=== PATIENT | female | born 1980 | race Caucasian/White ===

== ENCOUNTER 2017-10-01 01:46 | Emergency (ER) | payer OTHER ==
[~2017-10-01] VITALS: Ht 172.7 cm; Wt 181.4 kg
[~2017-10-01 01:46] MED LIST: AZIT250T6 PO; GUAI120L35 PO; HYDR-2758 PO; ONDA4TAB10 SL
[2017-10-01] MEDS ORDERED: IV NORMAL SALINE 1,000ML 1,920 ML IV SCH (02:10)
[2017-10-01] MEDS ORDERED: ONDANSETRON PF 4 MG/2 ML VIAL. IV ONE (02:15)
--- NOTE | 2017-10-01 02:21 | PHYS DOC ---
Past History Past Medical History: Hypertension Past Surgical History: Oophorectomy, Tubal ligation Alcohol Use: Occasionally Drug Use: None Adult General Chief Complaint Chief Complaint: FEVER HPI HPI Patient is a 37 year old female who presents with complaint of fever, chills, and redness to the left lower extremity. Patient states that she started feeling sick earlier yesterday. Patient states that she felt very weak and feverish after getting home from work. Patient noticed later in the evening that she had a red area on her left lower extremity. Patient denies any history of similar symptoms. Patient states that the redness has increased over the last several hours and has started to go up her leg towards her knee. The patient states that the leg is very tender and is having pain when she bears weight on the affected extremity. Patient follows with Dr. Pederson for primary care. Patient states that she has history of psoriasis but denies any other health problems. Patient is not currently on any medications. Patient has not taken any medications for her current symptoms. Patient rates her pain currently as 8 out of 10. Review of Systems Review of Systems Constitutional: Fever, chills[] Eyes: Denies change in visual acuity, redness, or eye pain [] HENT: Denies nasal congestion or sore throat [] Respiratory: Denies cough or shortness of breath [] Cardiovascular: Denies chest pain or edema[] GI: Denies abdominal pain, nausea, vomiting, bloody stools or diarrhea [] : Denies dysuria or hematuria [] Musculoskeletal: Denies back pain or joint pain [] Integument: Redness to left lower leg[] Neurologic: Denies headache, focal weakness or sensory changes [] All other systems were reviewed and found to be within normal limits, except as documented in this note. Current Medications Current Medications Current Medications Medications (Trade) Dose Ordered Sig/Magdi Start Time Stop Time Status Last Admin Dose Admin Fentanyl Citrate (Fentanyl 2ml Vial) 50 mcg PRN Q15MIN PRN 10/01/17 02:15 10/02/17 02:14 UNV Ondansetron HCl (Zofran) 4 mg 1X ONCE 10/01/17 02:15 10/01/17 02:16 UNV Sodium Chloride 1,920 ml @ 1,920 mls/hr Q1H 10/01/17 02:10 UNV Allergies Allergies Allergies Coded Allergies Type Severity Reaction Last Updated Verified cefoxitin Allergy Intermediate 09/04/16 Yes morphine Allergy Intermediate Hives 09/04/16 Yes Physical Exam Physical Exam Constitutional: Alert, afebrile, obese, appears in moderate discomfort. [] HENT: Normocephalic, atraumatic, bilateral external ears normal, oropharynx moist, no oral exudates, nose normal. [] Eyes: PERRLA, EOMI, conjunctiva normal, no discharge. [] Neck: Normal range of motion, no tenderness, supple, no stridor. [] Cardiovascular: Tachycardia, regular rhythm, no murmur [] Lungs & Thorax: Bilateral breath sounds clear to auscultation [] Abdomen: Bowel sounds normal, soft, no tenderness, no masses, no pulsatile masses. [] Skin: Warm, dry, erythema, induration, and warmth of left lower extremity with erythema extending proximally to the upper third of the left lower leg. [] Back: No tenderness, no CVA tenderness. [] Extremities: Tenderness palpation in the aforementioned area of erythema of the left lower leg, no cyanosis, no clubbing, ROM intact. [] Neurologic: Alert and oriented X 3, normal motor function, normal sensory function, no focal deficits noted. [] Current Patient Data Vital Signs Vital Signs Date Time Temp Pulse Resp B/P (MAP) Pulse Ox O2 Delivery O2 Flow Rate FiO2 10/01/17 01:46 99.5 107 22 97 Room Air EKG EKG Rhythm strip interpretation by me: Heart rate 105, sinus tachycardia, no ectopy[ ] Radiology/Procedures Radiology/Procedures Not performed[] Course & Med Decision Making Course & Med Decision Making Pertinent Labs and Imaging studies reviewed. (See chart for details) Patient was treated with IV fluids, fentanyl, and Zofran. Patient has a mildly elevated white count, however lactic acid levels are within normal limits and patient's tachycardia has resolved with fluid administration. Patient started on IV doxycycline in the emergency department. The patient will continue on 10 day course of oral doxycycline for treatment of cellulitis of the left lower extremity. Advised follow-up with Dr. Pederson in 2-3 days for reevaluation and return to emergency department for any worsening symptoms. Patient voiced understanding and in agreement with treatment plan. Dragon Disclaimer Dragon Disclaimer This electronic medical record was generated, in whole or in part, using a voice recognition dictation system. Departure Departure: Impression: Primary Impression: Cellulitis Disposition: HOME, SELF-CARE Condition: IMPROVED Referrals: SAMMIE PEDERSON MD (PCP) Patient Instructions: Cellulitis Additional Instructions: Follow-up with Dr. Pederson in 2-3 days for reevaluation. Return to the emergency department for any worsening symptoms. Scripts Doxycycline Hyclate (DOXYCYCLINE HYCLATE) 100 Mg Capsule 1 CAP PO BID, #20 CAP Prov: MARQUES MCQUEEN MD 10/01/17 Hydrocodone Bit/Acetaminophen (NORCO 5-325 TABLET) 1 Each Tablet 1-2 TAB PO Q4-6HRS Y for PAIN, #15 TAB Prov: MARQUES MCQUEEN MD 10/01/17 Problem Qualifiers Primary Impression: Cellulitis Site of cellulitis: extremity Site of cellulitis of extremity: lower extremity Laterality: left Qualified Codes: L03.116 - Cellulitis of left lower limb MARQUES MCQUEEN MD Oct 01, 2017 02:21
[2017-10-01 02:52] LABS: BASO # 0.1 x10^3/uL (0.0-0.2); BASO % 0 % (0-3); EOS # 0.1 x10^3/uL (0.0-0.7); EOS % 1 % (0-3); HEMATOCRIT 38.9 % (36.0-47.0); HEMOGLOBIN 12.6 g/dL (12.0-15.5); LYMPH # 1.7 x10^3/uL (1.0-4.8); LYMPH % 14 % (24-48); MEAN CORPUSCULAR HEMOGLOBIN 26 pg (25-35); MEAN CORPUSCULAR HGB CONC 32 g/dL (31-37); MEAN CORPUSCULAR VOLUME 81 fL (79-100); MONO # 0.7 x10^3/uL (0.0-1.1); MONO % 6 % (0-9); NEUT # 10.3 x10^3uL (1.8-7.7); NEUT % 80 % (31-73); PLATELET COUNT 264 x10^3/uL (140-400); RED BLOOD COUNT 4.82 x10^6/uL (3.50-5.40); RED CELL DISTRIBUTION WIDTH 14.6 % (11.5-14.5); WHITE BLOOD COUNT 12.9 x10^3/uL (4.0-11.0)
[2017-10-01 03:00] LABS: ALBUMIN 3.1 g/dL (3.4-5.0); ALBUMIN/GLOBULIN RATIO 0.7 (1.0-1.7); CALCIUM 8.4 mg/dL (8.5-10.1); CREATININE 0.9 mg/dL (0.6-1.0); GFR 71.3; POTASSIUM 3.9 mmol/L (3.5-5.1); TOTAL BILIRUBIN 0.2 mg/dL (0.2-1.0); TOTAL PROTEIN 7.4 g/dL (6.4-8.2)
[2017-10-01] MEDS ORDERED: DOXYCYCLINE HYCLATE 100 MG in IV DEXTROSE 5% 100 ML IV ONE (03:15)
[2017-10-01] MEDS ORDERED: DOXY100C2 PO (03:35)
[2017-10-01] MEDS ORDERED: HYDR-971 PO (03:35)
[2017-10-01] MEDS ORDERED: DOXYCYCLINE HYCLATE 100 MG VIAL IV ONE (03:39)
[2017-10-01] MEDS ORDERED: IV NORMAL SALINE 100ML 0 ML ONE (03:39)
[2017-10-01] MEDS ORDERED: IV DEXTROSE 5% 100 ML IV ONE (03:41)
[2017-10-01 04:30] VITALS: BP 136/64
== END 2017-10-01 04:50 | disposition home or self-care (01) ==
LOC: ER 01:46
DX: L03.116 Cellulitis of left lower limb (principal); I10 Essential (primary) hypertension; Z88.5 Allergy status to narcotic agent; Z88.1 Allergy status to other antibiotic agents
CPT/HCPCS: 36415; 80053; 83605; 85025; 85379; 87040; 96365; 96366; 96375; 99285; J2405; J3010; J3490; J7030